=== PATIENT | male | born 1965 | race Caucasian/White ===

== ENCOUNTER 2023-07-15 14:36 | Emergency (ER) | payer OTHER ==
[2023-07-15 14:58] VITALS: TEMP 97.9
--- NOTE | 2023-07-15 15:23 | ERPHSYRPT ---
- History of Present Illness Time Seen by Provider: 07/15/23 15:00 Source: patient Exam Limitations: no limitations Patient Subjective Stated Complaint: Pt had labs done today and his sodium was 118 Triage Nursing Assessment: Pt was brought from the senior living to the ER by EMS, vitals wnl, rates pain in his abdomen as 7/10, pt is due to have his abdomen drained, he has only had it done twice and it has been since May, +4 pitting edema to arleth lower ext, pulses normal, difficulty breathing due to fluid build up in abdomen, pt is on a no added sodium diet Physician History: Patient is a 57-year-old male with a history of alcoholic cirrhosis with recurrent ascites and leg swelling currently on a low-sodium diet presents to our ED for evaluation of a sodium of 118. Patient complains that his abdomen feels distended. Patient states he is experiencing some generalized abdominal pain rated 7 out of 10. No trauma no fever. No nausea vomiting or diaphoresis. Symptoms are mild to moderate in intensity. No specific worsening or improving factors. Patient voices no other complaints or concerns at this time. Patient in no active pain. He declined pain medication. Portions of this note were created with voice recognition technology. There may be grammatical, spelling, punctuation or sound alike errors Timing/Duration: today Severity: moderate Modifying Factors: Improves With: nothing Associated Symptoms: denies symptoms Allergies/Adverse Reactions: acetaminophen Allergy (Verified 07/15/23 14:58) Home Medications: Atorvastatin Calcium [Lipitor 40Mg] 40 mg PO DAILY 07/15/23 [History] Cyanocobalamin (Vitamin B-12) [B-12] 1,000 mcg PO DAILY 07/15/23 [History] Ergocalciferol (Vitamin D2) [Vitamin D2] 50,000 unit PO WEEKLY 07/15/23 [H istory] Famotidine 20 mg [Pepcid 20 MG] 20 mg PO HS 07/15/23 [History] Folic Acid 1 mg [Folate 1 mg] 1 mg PO DAILY 07/15/23 [History] Furosemide 20 mg [Lasix 20 mg] 20 mg PO DAILY 07/15/23 [History] Lactulose [Lactulose 20 gm/30Ml Ud Cup] 20 gm PO TID 07/15/23 [History] Melatonin 5 mg PO DAILY 07/15/23 [History] Mirtazapine 7.5 mg PO HS 07/15/23 [History] Spironolactone 25 mg [Aldactone 25 MG] 25 mg PO DAILY 07/15/23 [History] Tamsulosin HCl 0.4 mg [Flomax 0.4 MG] 0.4 mg PO DAILY 07/15/23 [History] Thiamine HCl 100 mg [Vitamin B-1 100 mg] 100 mg PO DAILY 07/15/23 [History] prednisoLONE sodium phosphate [Prednisolone Sodium Phosphate] 40 mg PO DAILY 0 07/15/23 [History] Hx Influenza Vaccination/Date Given: Yes Hx Pneumococcal Vaccination/Date Given: No Travel Risk - International Travel Have you traveled outside of the country in past 3 weeks: No - Coronavirus Screening Are you exhibiting any of the following symptoms?: No Close contact with a COVID-19 positive Pt in past 14-21 Days: No - Vaccine Status Have you recieved a Covid-19 vaccination: No - Review of Systems Constitutional: No Symptoms, No Fever, No Chills Eyes: No Symptoms Ears, Nose, & Throat: No Symptoms Respiratory: No Symptoms, No Cough, No Dyspnea Cardiac: No Symptoms, No Chest Pain, No Edema, No Syncope Abdominal/Gastrointestinal: No Symptoms, No Abdominal Pain, No Nausea, No Vomiting, No Diarrhea Genitourinary Symptoms: No Symptoms, No Dysuria Musculoskeletal: No Symptoms, No Back Pain, No Neck Pain Skin: No Symptoms, No Rash Neurological: No Symptoms, No Dizziness, No Focal Weakness, No Sensory Changes Psychological: No Symptoms Endocrine: No Symptoms Hematologic/Lymphatic: No Symptoms Immunological/Allergic: No Symptoms All Other Systems: Reviewed and Negative - Past Medical History Pertinent Past Medical History: Yes Cardiac History: High Cholesterol, Hypertension Respiratory History: COPD GI Medical History: Cirrhosis, GERD History: Renal Disease Psycho-Social History: Bipolar - Past Surgical History Past Surgical History: No - Social History Smoking Status: Former smoker Exposure to second hand smoke: No Drug Use: none Patient Lives Alone: No - Nursing Vital Signs Nursing Vital Signs: Initial Vital Signs Temperature 97.9 F 07/15/23 14:44 Pulse Rate 93 H 07/15/23 14:44 Respiratory Rate 14 07/15/23 14:44 Blood Pressure 121/33 07/15/23 14:44 O2 Sat by Pulse Oximetry 98 07/15/23 14:44 Pain Scale Pain Intensity 0 - Physical Exam General Appearance: no apparent distress, alert, other (Scleral icterus jaundiced) Eye Exam: PERRL/EOMI, eyes nml inspection Ears, Nose, Throat Exam: normal ENT inspection, pharynx normal, moist mucous membranes Neck Exam: normal inspection, non-tender, supple, full range of motion Respiratory Exam: normal breath sounds, lungs clear, airway intact, No respiratory distress Cardiovascular Exam: regular rate/rhythm, normal heart sounds, normal peripheral pulses Gastrointestinal/Abdomen Exam: soft, normal bowel sounds, tenderness (Generalized tenderness), distention, No mass Back Exam: normal inspection, normal range of motion, No CVA tenderness, No vertebral tenderness Extremity Exam: normal inspection, normal range of motion, pelvis stable, pedal edema (3+ pitting edema) Neurologic Exam: alert, oriented x 3, cooperative, normal mood/affect, sensation nml, No motor deficits Skin Exam: normal color, warm, dry, No rash Lymphatic Exam: No adenopathy SpO2 Interpretation: normal SpO2: 98 O2 Delivery: Room Air - Course Nursing assessment & vital signs reviewed: Yes EKG Interpreted by Me: RATE (90), Sinus Rhythm, NORMAL AXIS, NORMAL INTERVALS Ordered Tests: Active Orders 24 hr Category Date Time Status Consulting Systems Engineer STAT Care 07/15/23 15:12 Active EKG-ER Only STAT Care 07/15/23 15:12 Active IV Insertion STAT Care 07/15/23 15:12 Active Pulse Oximetry (ED) STAT Care 07/15/23 15:12 Active ABDOMEN AND PELVIS W/0 CONTRAS [CT] Stat Exams 07/15/23 15:17 Completed CBC W DIFF Stat Lab 07/15/23 15:32 Completed CMP Stat Lab 07/15/23 15:32 Completed TROPONIN Q4H Lab 07/15/23 15:32 Completed TROPONIN Q4H Lab 07/15/23 19:15 Completed TROPONIN Q4H Lab 07/15/23 23:09 Received Lab/Rad Data: Laboratory Result Diagrams 07/15/23 15:32 07/15/23 15:32 Laboratory Results 07/15/23 07/15/23 07/15/23 Range/Units 19:15 15:32 15:32 WBC (4.0-10.5) x10^3/uL RBC (4.1-5.6) x10^6/uL Hgb (12.5-18.0) g/dL Hct (42-50) % MCV (78-100) fL MCH (26-32) pg MCHC (32-36) g/dL RDW (11.5-14.0) % Plt Count (150-450) x10^3/uL MPV (7.5-11.0) fL Gran % (36.0-66.0) % Immature Gran % (Auto) (0.00-0.4) % Nucleat RBC Rel Count (0.00-0.1) % Eos # (Auto) (0-0.5) x10^3/uL Immature Gran # (Auto) (0.00-0.03) x10^3u/L Absolute Lymphs (auto) (1.0-4.6) x10^3/uL Absolute Monos (auto) (0.0-1.3) x10^3/uL Absolute Nucleated RBC (0.00-0.01) x10^3u/L Lymphocytes % (24.0-44.0) % Monocytes % (0.0-12.0) % Eosinophils % (0.00-5.0) % Basophils % (0.0-0.4) % Absolute Granulocytes (1.4-6.9) x10^3/uL Basophils # (0-0.4) x10^3/uL Sodium 119 L* (137-145) mmol/L Potassium 5.8 H (3.5-5.1) mmol/L Chloride 92 L (98-107) mmol/L Carbon Dioxide 21 L (22-30) mmol/L Anion Gap 11.8 (5-15) MEQ/L BUN 51 H (9-20) mg/dL Creatinine 1.34 H (0.66-1.25) mg/dL Estimated GFR 61.8 ML/MIN Glucose 118 H (74-106) mg/dL Calcium 9.3 (8.4-10.2) mg/dL Total Bilirubin 3.30 H (0.2-1.3) mg/dL AST 327 H (17-59) U/L ALT 235 H (0-50) U/L Alkaline Phosphatase 618 H (38-126) U/L Troponin I 0.023 0.026 (0.000-0.034) ng/mL Serum Total Protein 7.7 (6.3-8.2) g/dL Albumin 3.0 L (3.5-5.0) g/dL Slides for Path Review 07/15/23 Range/Units 15:32 WBC 17.6 H (4.0-10.5) x10^3/uL RBC 4.09 L (4.1-5.6) x10^6/uL Hgb 14.5 (12.5-18.0) g/dL Hct 40.9 L (42-50) % MCV 100.0 (78-100) fL MCH 35.5 H (26-32) pg MCHC 35.5 (32-36) g/dL RDW 13.8 (11.5-14.0) % Plt Count 188 (150-450) x10^3/uL MPV 10.3 (7.5-11.0) fL Gran % 76.8 H (36.0-66.0) % Immature Gran % (Auto) 0.7 H (0.00-0.4) % Nucleat RBC Rel Count 0.0 (0.00-0.1) % Eos # (Auto) 0.18 (0-0.5) x10^3/uL Immature Gran # (Auto) 0.13 H (0.00-0.03) x10^3u/L Absolute Lymphs (auto) 1.61 (1.0-4.6) x10^3/uL Absolute Monos (auto) 2.15 H (0.0-1.3) x10^3/uL Absolute Nucleated RBC 0.00 (0.00-0.01) x10^3u/L Lymphocytes % 9.2 L (24.0-44.0) % Monocytes % 12.2 H (0.0-12.0) % Eosinophils % 1.0 (0.00-5.0) % Basophils % 0.1 (0.0-0.4) % Absolute Granulocytes 13.47 H (1.4-6.9) x10^3/uL Basophils # 0.02 (0-0.4) x10^3/uL Sodium (137-145) mmol/L Potassium (3.5-5.1) mmol/L Chloride (98-107) mmol/L Carbon Dioxide (22-30) mmol/L Anion Gap (5-15) MEQ/L BUN (9-20) mg/dL Creatinine (0.66-1.25) mg/dL Estimated GFR ML/MIN Glucose (74-106) mg/dL Calcium (8.4-10.2) mg/dL Total Bilirubin (0.2-1.3) mg/dL AST (17-59) U/L ALT (0-50) U/L Alkaline Phosphatase (38-126) U/L Troponin I (0.000-0.034) ng/mL Serum Total Protein (6.3-8.2) g/dL Albumin (3.5-5.0) g/dL Slides for Path Review YES - Progress Progress: improved Progress Note: 57-year-old male history of alcoholic liver cirrhosis presents to emergency department from [address] for evaluation of hyponatremia. Patient on a sodium restriction due to ascites. Physical exam reveals lower extremity pitting edema abdominal distention scleral icterus jaundiced. EKG reveals normal sinus rhythm. CT abdomen pelvis reveals anasarca and large ascites. CBC reveals a leukocytosis of 17.6. Hyponatremia of 119. Hyperkalemia 5.8. Total bilirubin of 3.3. AST 327. ALT 235. Alk phos 618. Troponin negative x 2. Case discussed with hospitalist approximately 9 PM who feels patient requires higher level of care/gastroenterology. We contacted [facility]. I spoke to Dr. Jimenez hospitalist who accepts transfer at 9:15 PM. However he advised that we discussed case with nephrology. I discussed the case with who accepts transfer from a nephrology point of view. We intended to obtain a urinalysis however unable to collect urine Plan of care discussed with patient. He agrees to transfer to [facility] for further evaluation and treatment. Portions of this note were created with voice recognition technology. There may be grammatical, spelling, punctuation or sound alike errors Complexity problem addressed is moderate acute complicated No critical care time Complexity of data reviewed and analyzed is extensive. Test ordered test reviewed. Results analyzed and correlated clinically with history and physical examination. Management discussed with hospitalist at [facility], Dr. Jimenez hospitalist at [facility] as well as home care specialist. Risk complication and or risk of morbidity/mortality of patient management is high. Patient requires hospitalization/transfer to higher level of care Vital stable. Time spent to transfer patient approximately 30 minutes. Plan of care established for shared decision making. No social determinants of health present impede follow-up. Portions of this note were created with voice recognition technology. There may be grammatical, spelling, punctuation or sound alike errors 07/15/23 23:54 Discussed with : Gibran, Other Counseled pt/family regarding: lab results, diagnosis, rad results - Departure Departure Disposition: Transfer Clinical Impression: Scleral icterus, Jaundice, Alcoholic cirrhosis, Lower extremity pitting edema, Hyponatremia, Anasarca, Ascites, Lung granuloma, Leukocytosis, Transaminitis, Elevated alkaline phosphatase level Condition: Stable Critical Care Time: No Referrals: XOCHILT RIVAS NP [NON-STAFF PHY W/O PRIVILEGES] - Follow up/PCP as directed
[2023-07-15 15:39] LABS: Absolute Neutrophil Ct (ANC) 13.47 x10^3/uL (1.4-6.9); BASOPHIL % 0.1 % (0.0-0.4); Basophil (Absolute #) 0.02 x10^3/uL (0-0.4); Eosinophil (Absolute #) 0.18 x10^3/uL (0-0.5); Hematocrit 40.9 % (42-50); Hemoglobin 14.5 g/dL (12.5-18.0); IMMATURE GRAN # 0.13 x10^3u/L (0.00-0.03); IMMATURE GRAN % 0.7 % (0.00-0.4); Lymphocyte (Absolute #) 1.61 x10^3/uL (1.0-4.6); Lymphocytes % 9.2 % (24.0-44.0); Mean Corpuscular Hemoglobin 35.5 pg (26-32); Mean Corpuscular Hgb Concent. 35.5 g/dL (32-36); Mean Platelet Volume 10.3 fL (7.5-11.0); Monocyte (Absolute #) 2.15 x10^3/uL (0.0-1.3); Monocytes % 12.2 % (0.0-12.0); Neutrophil % 76.8 % (36.0-66.0); Platelet Count 188 x10^3/uL (150-450); Red Blood Count 4.09 x10^6/uL (4.1-5.6); Red Cell Distribution Width 13.8 % (11.5-14.0); White Blood Count 17.6 x10^3/uL (4.0-10.5)
[2023-07-15 15:54] LABS: ANION GAP 11.8 MEQ/L (5-15); BILIRUBIN,TOTAL 3.3 mg/dL (0.2-1.3); Calcium 9.3 mg/dL (8.4-10.2); Creatinine 1 1.34 mg/dL (0.66-1.25); EST GLOMERULAR FILTRATION RATE 61.8 ML/MIN; Potassium 5.8 mmol/L (3.5-5.1); Total Protein 7.7 g/dL (6.3-8.2)
[2023-07-15 16:11] LABS: Slide Review 1 YES
--- NOTE | 2023-07-15 16:33 | XRAY ---
Indication: Fluid retention. Multiple contiguous axial images obtained through abdomen and pelvis without contrast. Comparison: None Lung bases demonstrates tiny bibasilar effusions with dependent atelectasis. 1.6 cm posterior right lower lobe calcified granuloma. Heart not enlarged. Noncontrasted stomach and bowel loops appear nonobstructed. Cirrhotic appearing liver with large abdominal/pelvic ascites. No free air. Incidental tiny hepatic/splenic calcified granulomas. Remaining gallbladder, pancreas, adrenal glands, kidneys, ureters, and bladder are unremarkable for noncontrast exam. Mild scattered aortoiliac calcifications without AAA. Osseous structures intact with mild degenerative changes throughout the thoracolumbar spine. Diffuse anasarca. Impression: 1. Cirrhotic liver with large abdominal/pelvic ascites, tiny bibasilar effusions, and anasarca. 2. Chronic findings including arteriosclerotic disease, chronic bony findings, and old granulomatous disease.
[2023-07-15 23:18] VITALS: BP 104/80; PULSE 72; RESP 15
[2023-07-16] VITALS: O2SAT 98
== END 2023-07-15 23:52 | disposition short-term general hospital (02) ==
LOC: ED 14:36
DX: K70.31 Alcoholic cirrhosis of liver with ascites (principal); R60.0 Localized edema; E87.1 Hypo-osmolality and hyponatremia; R60.1 Generalized edema; J84.10 Pulmonary fibrosis, unspecified; D72.829 Elevated white blood cell count, unspecified; R74.01 Elevation of levels of liver transaminase levels; R74.8 Abnormal levels of other serum enzymes; R10.84 Generalized abdominal pain; E78.5 Hyperlipidemia, unspecified; I10 Essential (primary) hypertension; Z79.52 Long term (current) use of systemic steroids; Z79.899 Other long term (current) drug therapy; Z28.310 Unvaccinated for COVID-19
CPT/HCPCS: 36000; 36415; 74176; 80053; 84484; 85025; 93005; 93041; 94760; 99285